=== PATIENT | female | born 1960 | race Caucasian/White ===

== ENCOUNTER 2017-01-06 07:06 | Emergency (ER) | payer SELFPAY ==
[2017-01-06 07:18] VITALS: TEMP 98.1; BMI 37.5
--- NOTE | 2017-01-06 07:41 | PDOC ---
History of Present Illness - History of Present Illness Initial Comments: 01/06/17 07:54 The patient is a 56 year old female, with a significant past medical history of right ankle fracture and possible hypertension (Pt feels she might have been on meds in the past), who presents to the emergency department with increased redness, pain, and swelling to her right valencia for about a month. She reports some mild chronic swelling to her right ankle joint from a prior fracture from 3 years ago, however, reports increased area of increased redness and tenderness to her right valencia at the anterior, medial aspect. She states the pain to her right ankle and valencia is appreciated with palpation. She denies pain with weight bearing or ambulation. She denies recent trauma. She reports being the passenger in a 6-hour car ride to [place] on 01/02/17. He states the redness to her right lower extremity was present during her trip to [place] and denies an increase in area of tenderness and redness since. The patients family reports there were stops made periodically during their ride to [place]. The patient admits to recently starting amoxicillin for a throat infection, however, reports she did not complete the dose. She denies chest pain, shortness of breath, headache and dizziness. She denies fever, chills, nausea, vomit, diarrhea and constipation. She denies dysuria, frequency, urgency and hematuria. Allergies: NKDA Past surgical history: back surgery Social history: Denies tobacco use. Denies alcohol consumption PCP - none <Jaja Gaytan - Last Filed: 01/06/17 08:58> <Sonia Brasher - Last Filed: 01/06/17 12:11> - General Chief Complaint: Edema Stated Complaint: SWELLING TO RIGHT FOOT Time Seen by Provider: 01/06/17 07:32 Past History <Jaja Gaytan - Last Filed: 01/06/17 08:58> - Past Medical History Other medical history: DENIES MEDICAL HX - Suicide/Smoking/Psychosocial Hx Smoking History: Never smoked Hx Alcohol Use: No Drug/Substance Use Hx: No <Sonia Brasher - Last Filed: 01/06/17 12:11> - Past Medical History Allergies/Adverse Reactions: Allergies Allergy/AdvReac Type Severity Reaction Status Date / Time No Known Allergies Allergy Verified 01/06/17 07:18 Home Medications: Ambulatory Orders Cephalexin Monohydrate [Keflex -] 500 mg PO Q6H #28 capsule 01/06/17 Sulfamethoxazole/Trimethoprim [Bactrim Ds -] 1 tab PO BID #14 tablet 01/06/17 Review of Systems - Review of Systems Able to Perform ROS?: Yes Comments:: 01/06/17 07:55 GENERAL/CONSTITUTIONAL: No fever or chills. No weakness. HEAD, EYES, EARS, NOSE AND THROAT: No change in vision. No ear pain or discharge. No sore throat. CARDIOVASCULAR: No chest pain or shortness of breath. RESPIRATORY: No cough, wheezing, or hemoptysis. GASTROINTESTINAL: No nausea, vomiting, diarrhea or constipation. GENITOURINARY: No dysuria, frequency, or change in urination. MUSCULOSKELETAL: (+) tenderness, swelling, and redness to right lower extremity. No joint pain. No neck or back pain. SKIN: (+) redness and swelling to right lower extremity. NEUROLOGIC: No headache, vertigo, loss of consciousness, or change in strength/ sensation. ENDOCRINE: No increased thirst. No abnormal weight change. HEMATOLOGIC/LYMPHATIC: No anemia, easy bleeding, or history of blood clots. ALLERGIC/IMMUNOLOGIC: No hives or skin allergy. <Jaja Gaytan - Last Filed: 01/06/17 08:58> *Physical Exam - Vital Signs Last Vital Signs Temp Pulse Resp BP Pulse Ox 98.1 F 86 18 150/94 98 01/06/17 07:09 01/06/17 07:37 01/06/17 07:09 01/06/17 07:37 01/06/17 07:37 - Physical Exam Comments: 01/06/17 07:57 GENERAL: Awake, alert, and fully oriented, in no acute distress NEUROLOGICAL: Cranial nerves II through XII grossly intact. Normal speech, normal gait SKIN: (+) There is hyper pigmentation to right ankle. There is also an 8cm area of erythema warmth, and tenderness to right anterior medial valencia. Warm, Dry, normal turgor, no lesions noted. EXTREMITIES:(+) There is hyper pigmentation to right ankle. There is also an 8cm area of erythema warmth, and tenderness to right anterior medial valencia. 1+ pitting edema. Normal range of motion, No clubbing or cyanosis. No cords <Jaja Gaytan - Last Filed: 01/06/17 08:58> - Vital Signs Last Vital Signs Temp Pulse Resp BP Pulse Ox 98.1 F 86 18 150/94 98 01/06/17 07:09 01/06/17 07:37 01/06/17 07:09 01/06/17 07:37 01/06/17 07:37 <Sonia Brasher - Last Filed: 01/06/17 12:11> ED Treatment Course - RADIOLOGY Radiograph Interpretation: 01/06/17 08:58 EXAM#: TYPE/EXAM: RESULT: [id number] RAD/LEG TIB/FIB-RIGHT Cellulitis rule out subcutaneous gas. Right leg 2 views. No evidence of soft tissues emphysematous changes. No radiopaque foreign body is seen. No evidence of bony destructive changes. No acute bony abnormalities are seen within limitation of examination. Impression: No evidence of soft tissues emphysematous changes, or radiopaque foreign body. No evidence of bony destructive changes. Reported By: Billy Hill MD 01/06/17 0854 <Jaja Gaytan - Last Filed: 01/06/17 08:58> Medical Decision Making - Medical Decision Making Hyperpigmentation of the ankle is chronic per patient. No asymmetric swelling to indicate DVT. Exam more consistent with cellulitis. <Sonia Brasher - Last Filed: 01/06/17 12:11> *DC/Admit/Observation/Transfer - Attestations Scribe Attestion: 01/06/17 07:57 Documentation prepared by Jaja Gaytan, acting as caregivers non medical for Sonia Brasher MD, <Jaja Gaytan - Last Filed: 01/06/17 08:58> - Discharge Dispostion Admit: No <Sonia Brasher - Last Filed: 01/06/17 12:11> Diagnosis at time of Disposition: Cellulitis Qualifiers: Site of cellulitis: extremity Site of cellulitis of extremity: lower extremity Laterality: right Qualified Code(s): L03.115 - Cellulitis of right lower limb - Discharge Dispostion Disposition: HOME Condition at time of disposition: Stable - Prescriptions Prescriptions: Sulfamethoxazole/Trimethoprim [Bactrim Ds -] 1 tab PO BID #14 tablet Cephalexin Monohydrate [Keflex -] 500 mg PO Q6H #28 capsule - Patient Instructions Printed Discharge Instructions: DI for Cellulitis -- Adult
[2017-01-06 08:08] VITALS: BP 150/94; PULSE 86
[2017-01-06] MEDS ORDERED: CEPHALEXIN MONOHYDRATE 500 MG CAPSULE (UD) PO ONE (08:13)
[2017-01-06] MEDS ORDERED: SULFAMETHOXAZOLE/TRIMETHOPRIM 800MG/160MG D.S. TABLET PO ONE (08:13)
[2017-01-06] MEDS ORDERED: SULFAMETHOXAZOLE/TRIMETHOPRIM 800MG/160MG D.S. TABLET ONE (08:36)
[2017-01-06] MEDS ORDERED: CEPHALEXIN MONOHYDRATE 250 MG CAPSULE (FP) ONE (08:36)
== END 2017-01-06 09:23 | disposition home or self-care (01) ==
LOC: JER 07:06
DX: L03.115 Cellulitis of right lower limb (principal); M79.89 Other specified soft tissue disorders
CPT/HCPCS: 73590-TC-RT; 99282-25